=== PATIENT | male | born 1975 | race Caucasian/White ===

== ENCOUNTER 2020-08-24 12:21 | Outpatient (REF) | payer OTHER, SELFPAY ==
[2020-08-26 15:46] LABS: Chlamydia Result Negative (Negative); GC Result Negative (Negative)
== END 2020-08-24 12:22 | disposition home or self-care (01) ==
LOC: LBN 12:21
PROVIDERS: PCP Emergency Medicine; Visit Provider Nurse Practitioner Family
DX: Z11.3 Encounter for screening for infections with a predominantly sexual mode of transmission (principal)
CPT/HCPCS: 87491; 87591

== ENCOUNTER 2021-06-01 15:04 | Outpatient (REF) | payer OTHER, SELFPAY ==
[2021-06-02 14:27] LABS: Chlamydia Result Negative (Negative); GC Result Negative (Negative)
== END 2021-06-01 15:05 | disposition home or self-care (01) ==
LOC: LBN 15:04
PROVIDERS: PCP Family Medicine; Visit Provider Nurse Practitioner Family
DX: N48.5 Ulcer of penis (principal); Z11.3 Encounter for screening for infections with a predominantly sexual mode of transmission
CPT/HCPCS: 87491; 87591

== ENCOUNTER 2021-06-12 03:02 | Outpatient (CLI) | payer OTHER, SELFPAY ==
[2021-06-13 10:24] LABS: Syphilis Serology (RPR) Negative (Negative)
[2021-06-13 10:34] LABS: HIV-1/2 Ag & Ab Screen Negative (Negative)
== END 2021-06-12 03:03 | disposition home or self-care (01) ==
LOC: LBO 03:02
PROVIDERS: PCP Family Medicine; Visit Provider Family Medicine
DX: N48.5 Ulcer of penis (principal); Z11.4 Encounter for screening for human immunodeficiency virus [HIV]; Z00.00 Encounter for general adult medical examination without abnormal findings
CPT/HCPCS: 36415; 87389; 86592

== ENCOUNTER 2021-10-26 10:40 | Emergency (ER) | payer OTHER, SELFPAY ==
[2021-10-26 10:50] VITALS: BP 149/93; PULSE 80; RESP 16; TEMP 37; O2SAT 98
[2021-10-26] MEDS: Tetanus & Diphtheria Tox,ADULT 0.5 ML VIAL IM (11:24)
--- NOTE | 2021-10-26 12:28 | ED.GENADUL_ITS ---
Discharge Plan Disposition Patient Disposition: HOME Condition: Stable Discharge Details Clinical Impression: Laceration of finger Primary Care Provider: Hector Barnett ED Provider: Eloise Walker Home Meds and New Rx's Prescriptions: Continued albuterol sulfate [ProAir HFA] 90 mcg/actuation HFA aerosol inhaler 1 - 2 puff Inhalation Q6H PRN Qty: 3 3RF ibuprofen 600 MG tablet 600 mg PO Q6H PRN PRNQty: 30 0RF acetaminophen [Mapap Extra Strength] 500 MG tablet 1,000 mg PO Q8H PRN PRNQty: 30 0RF Discharge Instructions Instructions: Finger Laceration (ED) Additional Instructions: motrin/tylenol for pain suture removal in 8-10 days return earlier with new or worsening complaints do not submerge in water until sutures removed Referrals: Hector Barnett, HVAC DESIGNER [Primary Care Provider] - Discharge Data Discharge Date/Time-TO BE ENTERED AT DEPARTURE: 10/26/21 12:47 Medical Decision Making Tolerated suture placement without incident Suture removed and 8 to 10 days Return precautions discussed and patient expressed understanding HPI General Date/Time Provider Initiated Documentation: 10/26/21 10:53 . HPI Narrative: This 46-year-old male presents status post laceration to his left pinky finger. He cut it on the corner of a lawnmower blade. Unsure regarding tetanus. The event occurred this morning. Denies any strength or sensation change. Related D asher Home Medications Medication Instructions Recorded Confirmed acetaminophen 500 mg tablet (Mapap 1,000 mg PO Q8H PRN PRN #30 tabs 07/25/16 10/26/21 Extra Strength) ibuprofen 600 mg tablet 600 mg PO Q6H PRN PRN #30 tabs 07/25/16 10/26/21 albuterol sulfate 90 mcg/actuation 1 - 2 puff inhalation Q6H PRN ##3 09/02/20 10/26/21 aerosol inhaler (ProAir HFA) Previous Rx's Medication Instructions Recorded acetaminophen 500 mg tablet (Mapap 1,000 mg PO Q8H PRN PRN #30 tabs 07/25/16 Extra Strength) ibuprofen 600 mg tablet 600 mg PO Q6H PRN PRN #30 tabs 07/25/16 albuterol sulfate 90 mcg/actuation 1 - 2 puff inhalation Q6H PRN ##3 09/02/20 aerosol inhaler (ProAir HFA) Allergies Allergy/AdvReac Type Severity Reaction Status Date / Time No Known Allergies Allergy Verified 10/26/21 10:53 General Stated Complaint: Laceration VIOLET: 4 Review of Systems All systems reviewed & are unremarkable except as noted in HPI and below PFSH All Active Problems (Updated 10/26/21 @ 12:35 by JAZMINE Mendoza) Laceration of finger (Acute) Mild intermittent asthma (Acute) Laryngopharyngeal reflux (Acute) Cannabis dependence (Acute) Patient uses marijuana most days Medical History (Updated 10/26/21 @ 12:35 by JAZMINE Mendoza) Alcohol abuse As of 08/2021 only several beers per week-prior history of more significant usage Allergic rhinoconjunctivitis, seasonal and perennial Anxiety Asthma History of alcohol use History of tobacco use Quit 2004 Low back pain Marijuana smoker Ulcer of penis Surgical History Repair of umbilical hernia (07/25/16) Family History (Updated 09/06/21 @ 16:05 by Deanne Carmona) Father Diabetes Son No problems noted. Daughter No problems noted. 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 Pets and animals: No Sexually active: Yes Do you think of yourself as: straight/heterosexual Current gender identity: female What is your relationship status?: How often do you talk on the phone with friends or family?: three or more times per week How often do you get together with friends or relatives?: twice per week How often do you attend pentecostal or anglican services?: decline to answer Panel score (0-1 are the most socially isolated patients): 1 Frequency: 1-2 times per week Donya/Buddhism: Pentecostal Do you feel safe at home: Yes Do you feel safe in your relationship?: Yes Exam Const General: cooperative Extrem Hand/finger images: 1. Half inch laceration noted Neurovascularly intact, strength and sensation intact, distal capillary refill intact Course Vital Signs Vital signs: Vital Signs Temperature 37 C 10/26/21 10:50 Pulse 80 10/26/21 10:50 Respiratory Rate 16 10/26/21 10:50 Blood Pressure 149/93 H 10/26/21 10:50 Pulse Oximetry 98 10/26/21 10:50 Temperature 37 C 10/26/21 10:50 Temperature Source Temporal Artery Scan 10/26/21 10:50 Pulse 80 10/26/21 10:50 Respiratory Rate 16 10/26/21 10:50 Respiratory Effort 10/26/21 10:52 Blood Pressure 149/93 H 10/26/21 10:50 Blood Pressure Position Sitting 10/26/21 10:50 Pulse Oximetry 98 10/26/21 10:50 Oxygen Delivery Method Room Air 10/26/21 10:50 Oxygen Flow Rate 0 10/26/21 10:50 Pain Level 1 10/26/21 10:50 Procedures Laceration Laceration 1: Site: upper extremity Side (If applicable): left Size (cm): 2 Description: linear Depth: simple, single layer Local Anesthetic: Lidocaine 1% Amount of anesthesia used (mL): 3 Pre-repair: wound explored Number of sutures: 1 Technique: other Size: 4-0
== END 2021-10-26 12:47 | disposition home or self-care (01) ==
PROVIDERS: Emergency Provider Physician Assistant; PCP Nurse Practitioner Family
DX: S61.217A Laceration without foreign body of left little finger without damage to nail, initial encounter (principal); Z23 Encounter for immunization; Z87.891 Personal history of nicotine dependence; W28.XXXA Contact with powered lawn mower, initial encounter
CPT/HCPCS: 12001; 90471; 99281; 99282

== ENCOUNTER 2021-11-13 13:02 | Outpatient (REF) | payer OTHER, SELFPAY ==
[2021-11-15 11:24] LABS: COVID-19 RT-PCR UVMMC Result Negative (Negative)
== END 2021-11-13 13:03 | disposition home or self-care (01) ==
LOC: LBN 13:02
PROVIDERS: PCP Nurse Practitioner Family; Visit Provider Physician Assistant
DX: Z20.822 Contact with and (suspected) exposure to COVID-19 (principal)
CPT/HCPCS: U0003

== ENCOUNTER 2022-06-26 02:25 | Outpatient (CLI) | payer OTHER, SELFPAY ==
[2022-06-26 13:03] LABS: ALT 96 U/L (16-63); AST 47 U/L (15-37); Albumin 3.8 g/dL (3.4-5.0); Alkaline Phosphatase 56 U/L (46-116); Anion Gap 7.4 mmol/L (3-11); BUN 14 mg/dL (7-18); Bilirubin, Total 0.5 mg/dL (0.2-1.0); CO2 32.6 mmol/L (21.0-32.0); CREATININE 1.4 mg/dL (0.70-1.30); Calcium 9.3 mg/dL (8.5-10.1); Calculated LDL 150 mg/dL (<100); Chloride 104 mmol/L (98-107); Cholesterol 226 mg/dL (<200); Estimated GFR 63.17 (mL/min/1.73m2); Glucose 80 mg/dL (74-106); HDL Cholesterol 46 mg/dL (40-60); Potassium 4.2 mmol/L (3.5-5.1); Sodium 144 mmol/L (136-145); Total Protein 7.2 g/dL (6.4-8.2); Triglyceride 154 mg/dL (<150)
== END 2022-06-26 02:26 | disposition home or self-care (01) ==
LOC: LOS 02:25
PROVIDERS: PCP Nurse Practitioner Family; Visit Provider Nurse Practitioner Family
DX: Z00.00 Encounter for general adult medical examination without abnormal findings (principal); F12.20 Cannabis dependence, uncomplicated; J45.20 Mild intermittent asthma, uncomplicated; K21.9 Gastro-esophageal reflux disease without esophagitis; E78.89 Other lipoprotein metabolism disorders
CPT/HCPCS: 36415; 80053; 80061

== ENCOUNTER 2022-11-12 14:45 | Outpatient (CLI) | payer OTHER, SELFPAY ==
--- NOTE | 2022-11-12 11:15 | DI.RAD_ITS ---
Exam(s) XR HIP RT COMPLETE AP PELVIS EXAM: XR HIP RT COMPLETE AP PELVIS INDICATION: right buttocks pain, lumbar radicular pain, M54.16. COMPARISON: No exams were available for comparison TECHNIQUE: 2D digital imaging was performed. Two views. FINDINGS: The hip joint spaces are maintained. There is mild bilateral acetabular spurring greatest superiorly . The SI joints and pubic symphysis are unremarkable. IMPRESSION: Minimal degenerative changes. DATA REPOSITORY: RADIATION DOSE DELIVERED:
--- NOTE | 2022-11-12 11:15 | DI.RAD_ITS ---
Exam(s) XR LUMBAR SPINE COMPLETE EXAM: XR LUMBAR SPINE COMPLETE CLINICAL HISTORY: back pain, right lower, radicular pain, M54.16. TECHNIQUE: 2D digital imaging was performed. Five views. COMPARISON: CR XR HIP RT COMPLETE AP PELVIS from 11/12/2022 FINDINGS: BONES: No fracture or destructive lesion. Vertebral body heights are maintained. Minimal facet hyper trophy identified. DISKS: Intervertebral disc spaces are maintained. Small endplate osteophytes lower lumbar spine. ALIGNMENT: Lumbar spinal alignment is within normal limits. SOFT TISSUE: Normal. IMPRESSION: Mild degenerative changes. DATA REPOSITORY: RADIATION DOSE DELIVERED:
== END 2022-11-12 15:05 ==
LOC: DI 14:46
PROVIDERS: PCP Nurse Practitioner Family; Visit Provider Physician Assistant
DX: M54.16 Radiculopathy, lumbar region (principal); M54.50 Low back pain, unspecified
CPT/HCPCS: 72110; 73502

== ENCOUNTER → 2022-12-06 01:01 | Outpatient (CLI) | payer OTHER, SELFPAY ==
--- NOTE | 2022-12-06 09:35 | DI.MRI_ITS ---
Exam(s) MR LUMBAR SPINE WO EXAM: MR LUMBAR SPINE WO CLINICAL HISTORY: back pain with radicular pain to right buttocks,M54.9. TECHNIQUE: Multiplanar multisequence MRI of the Lumbar spine was performed. COMPARISON: CR XR LUMBAR SPINE COMPLETE from 11/12/2022 FINDINGS: Recent plain films reveal transitional anatomy with a transitional lumbosacral vertebra. For the sak e of this study this vertebra will be called L5. Conus medullaris is at normal level. There is no evidence of conus mass nor subjacent clumping of in trathecal nerve roots to suggest arachnoiditis. The distal thecal sac appears unremarkable.There is no evidence of Tarlov intrasacral cysts nor other significant findings within the sacral canal Bones:There are no fractures nor ominous osseous lesions in the lumbar vertebral bodies and visualize d sacrum. With respect to the individual levels... T12-L1: Unremarkable L1-2: Normal disc height and signal. No disc herniation nor central canal stenosis.No foraminal steno sis L2-3: Normal disc height. No disc herniation nor central canal stenosis.No foraminal stenosis.No face t arthropathy. L3-4: Normal disc height. There is a small focus of signal abnormality in the mid-posterior annulus consistent with small radial tear of the annulus and there is mild annular bulging at this subligamen tous level. No large disc herniation. Central canal dimensions are lower normal. No evidence of fo raminal stenosis. Facet joints unremarkable. L4-5: Normal disc height and signal. However, there is a posterolateral right disc protrusion at thi s level which occupies the right lateral recess, extending posteriorly 7 mm and this disc protrusion is approximately 1.3 cm wide impresses the thecal sac and adjacent nerve roots at this level. The di sc herniation does not enter the exiting right neural foramen which is nicely patent. Exiting left n eural foramen is also patent. Mild degenerative changes in the facet joints at this level. L5-S1: Preserved disc height with the exception of some mild narrowing on the right side which does r esult in mild right-sided foraminal stenosis with mild impingement of the exiting right nerve root be tween the overlying pedicle and subjacent annulus which exhibits some mild bulging in the floor of th e exiting right neural foramen.. There is no prominent disc herniation at this level. No central ca nal stenosis. Exiting left neural foramen is widely patent. Soft tissues: paraspinal soft tissues appear unremarkable. IMPRESSION: 1. There is a significant posterolateral right disc protrusion occupying the right lateral recess at what is named the L4-5 disc space here. If this patient is to be a surgical candidate then close cor relation of the MRI with plain films is recommended as given that there appears to be a transitional vertebra here, this so as to avoid operating on the wrong level. 2. Mild right-sided foraminal stenosis at what is called L5-S1 level here. DATA REPOSITORY:
== END ==
PROVIDERS: PCP Nurse Practitioner Family; Visit Provider Physician Assistant
DX: M99.63 Osseous and subluxation stenosis of intervertebral foramina of lumbar region (principal); M48.061 Spinal stenosis, lumbar region without neurogenic claudication
CPT/HCPCS: 72148